=== PATIENT | male | born 1930 | race Caucasian/White ===

== ENCOUNTER 2017-05-11 11:58 | Inpatient (IN) | payer OTHER ==
[~2017-05-11] VITALS: Ht 172.7 cm; Wt 81.0 kg
--- NOTE | ~2017-05-11 | H ---
[facility] [place] [address] HISTORY AND PHYSICAL Name: SHAKIR VALERO Room #: 359-P [facility] IN M.R.#: [id number] Admission: 05/11/17 Attend Phys: Juan Diego Bello DO Discharge: 05/12/17 Date of : [birth year] Report #: [id number] THIS REPORT FOR: //name// CC: Jose Madera DATE OF SERVICE: 05/11/2017 REASON FOR PRESENTATION: Weakness of 1 day duration. HISTORY OF PRESENT ILLNESS: This is a very pleasant patient who is known to have hypertension; hyperlipidemia; GERD; Alzheimer disease; coronary artery disease, status post CABG. He was at his protestant this morning and went to the rest room. His checked on him and found him sitting in chair. He reported to her that he has had some issues with weakness and blurry vision while at protestant. No syncopal episodes. No chest pain or shortness of breath. No previous similar episodes. No numbness in any part of his body. No headache. No other focal neurological or cardiac symptoms. He presented to the Emergency Room where he was found to have bradycardia. Initial bradycardia evaluation was pretty much unremarkable, other than the fact that he is taking atenolol. Really, no other associated symptoms. He is known, as I have stated, to have coronary artery disease, status post CABG many years ago. No change in the medications. No syncopal episodes. PAST MEDICAL HISTORY: 1. Coronary artery disease, post CABG. 2. Hypertension. 3. Hyperlipidemia. 4. Alzheimer dementia. 5. Gout. PAST SURGICAL HISTORY, 1. CABG. 2. Tonsillectomy. MEDICATIONS: 1. Esomeprazole. 2. Memantine. 3. Losartan. 4. Atenolol. 5. Naproxen. 6. Lasix. 7. Cholecalciferol. ALLERGIES: No known drug allergies. 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 He lives with his . No drug or alcohol abuse. REVIEW OF SYSTEMS: GENERAL: No fever or chills, but significant weakness. CARDIOVASCULAR: No chest pain or palpitation. PULMONARY: No cough or hemoptysis. GASTROINTESTINAL: No nausea or vomiting. GENITOURINARY: Occasional frequency. MUSCULOSKELETAL: No morning stiffness, occasional arthralgias. NEUROLOGICAL: Significant for weakness. No numbness in any part of his body. No syncopal episodes. PHYSICAL EXAMINATION: GENERAL: The patient is pleasant, alert, oriented. VITAL SIGNS: Pulse rate initially was 30. Respiratory rate was 15. Blood pressure was 124/54. His pulse picked up to 61 after given atropine. HEAD AND NECK: No jugular venous distention, no bruit, no thyromegaly. CHEST: No crackles. CARDIOVASCULAR: Regular, bradycardic. ABDOMEN: Soft, nontender, with no hepatosplenomegaly. EXTREMITIES: Lower extremities, essentially no edema. LABORATORY VALUES: Reviewed. Mildly depressed platelets at 86,000. Creatinine is up to 1.6 from a baseline of 1.3. Initial troponin is negative. IMAGING: Including his chest x-ray reviewed. ASSESSMENT, IMPRESSION AND PLAN: 1. Symptomatic bradycardia. 2. Hypertension. 3. Acute kidney injury. 4. Thrombocytopenia. 5. History of coronary artery disease, status post coronary artery bypass graft. 6. Hyperlipidemia. 7. Alzheimer dementia. 8. Gout. 9. Admission. 10. Serial troponins. 11. Hold atenolol. 12. Check thyroid function test in the morning. 13. Hold Lasix. 14. Watch blood pressure. He received 1 liter bolus in the Emergency Room and no further fluid is needed for now. Monitor kidney function. 15. We will discuss with the Cardiology what beta titi he needs to be on, [place] [address] HISTORY AND PHYSICAL Name: SHAKIR VALERO Room #: 359-P [facility] IN ..#: [id number] Admission: 05/11/17 Attend Phys: Juan Diego Bello DO Discharge: 05/12/17 Date of : [birth year] Report #: [id number] after his bradycardia resolves. 16. Continue with the aspirin, statin, Cozaar for now. <ELECTRONICALLY SIGNED> By: Jose Ariza MD 05/14/17 1000 1347 1431 Jose Ariza MD /nt
--- NOTE | ~2017-05-11 | EKG ---
[address] [employer] [place] [address] ELECTROCARDIOGRAM REPORT Name: SHAKIR VALERO Room #: 359-P ADM IN M.R.#: [id number] Admission: 05/11/17 Attend Phys: Jose Ariza MD Discharge: Date of : [birth year] Report #: [id number] THIS REPORT FOR: //name// [facility] ED Test Date: 2017-05-11 Test Time: 12:00:05 Pat Name: SHAKIR VALERO Department: Room: 359 Gender: M Pediatrician: [id number] : 1930 Requested By: Jose Ariza Order Number: [id number] MD: Measurements Intervals [place] Rate: 90 P: 40 CA: 208 QRS: -30 QRSD: 94 T: 122 QT: 389 QTc: 476 Interpretive Statements Sinus rhythm Ventricular bigeminy Probable left atrial enlargement Inferior infarct, old Consider anterior infarct Lateral leads are also involved Compared to ECG 11/22/2015 20:18:19 Ventricular premature complex(es) now present Sinus bradycardia no longer present First degree AV block no longer present Poor R-wave progression no longer present T-wave abnormality no longer present Possible ischemia no longer present Myocardial infarct finding still present [email or web address] By: 1200 [facility] Epiphany EpiphanyMD /JUAN
--- NOTE | ~2017-05-11 | HC ---
[facility] [place] [address] CONSULTATION Name: SHAKIR VALERO Room #: 359-P [facility] IN M.R.#: [id number] Admission: 05/11/17 Attend Phys: Juan Diego Bello DO Discharge: 05/12/17 Date of : [birth year] Report #: [id number] THIS REPORT FOR: //name// CC: Jose Madera MD DATE OF SERVICE: 05/12/2017 TYPE OF REPORT: Cardiology consultation. PRIMARY CARE PHYSICIAN: Jeramy Madera M.D. HISTORY OF PRESENT ILLNESS: The patient is an 87-year-old white male who I was asked to see in the hospital today after he was noted to be bradycardic. The history is obtained from some old records. There are no family members available. The patient is demented and does not know where he is at and what year this is. He does not know why he is in the hospital. According to the records, the patient had coronary artery bypass surgery more than 15 years ago. He has been followed by my partner, Dr. Matt Trujillo. His last cardiac workup included an echocardiogram in November 2015 here at [facility] that showed an ejection fraction of 55%, apical hypokinesis and mild aortic insufficiency. He actually had a nuclear stress test in November 2015. 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 Medical therapy was recommended. The patient apparently was brought to the emergency room yesterday by ambulance. The patient apparently had been noted to be bradycardic. He had been weak and lightheaded with no energy. He does have severe dementia. [facility]. The patient has a nurse who gives me the patient's medications. There have been no recent changes in medication. Apparently, the patient had no recent chest pain, shortness of breath, nausea, vomiting or abdominal pain. PAST MEDICAL HISTORY: Otherwise significant for hypertension and severe dementia. MEDICATIONS: His medications yesterday consist of Flomax, Lasix, lisinopril, aspirin, simvastatin, Namenda, Exelon, Nexium, Naprosyn, atenolol 25 mg a day and losartan 25 mg a day. ALLERGIES: He had no known drug allergies. SOCIAL HISTORY: There is no history of smoking or alcohol abuse. REVIEW OF SYSTEMS: There is no history of stroke, asthma, peptic ulcer disease, liver disease, kidney disease or cancer. [address] [address] CONSULTATION Name: SHAKIR VALERO Room #: 359-P [facility] IN [facility]#: [id number] Admission: 05/11/17 Attend Phys: Juan Diego Bello DO Discharge: 05/12/17 Date of : [birth year] Report #: [id number] PHYSICAL EXAMINATION: GENERAL: Revealed an elderly male, lying in bed. He appeared in no distress. VITAL SIGNS: He had a blood pressure of 100/60, pulse was 60 and he was afebrile. HEENT: He was anicteric. Conjunctivae are pink. Mucous membranes are moist. NECK: Veins do not appear distended. CHEST: Clear to auscultation. CARDIAC: Regular rate and rhythm. ABDOMEN: Soft. EXTREMITIES: Had no edema. Dorsalis pedis pulse 3+ bilaterally. SKIN: Cool and dry. NEUROLOGICAL: He moved all extremities. PSYCHIATRIC: Mood appeared appropriate. RADIOLOGICAL DATA: First, there were some rhythm strips obtained by paramedics that appeared to show severe sinus bradycardia with a heart rate in the 30s with a first-degree AV block. His ECG on admission yesterday here at [facility] appeared to show sinus rhythm, first-degree AV block, PVCs in the pattern of bigemini and nonspecific ST-segment changes. Currently, the patient appears to be in a sinus rhythm, frequent PVCs. His workup in the Emergency Room yesterday, he had a portable chest x-ray that showed cardiomegaly. LABORATORY DATA: Sodium 138, creatinine 1.3 and glucose 97. Liver function studies were normal. Troponin was 0.29. His white blood cell count 9.1 and hemoglobin 14.5. IMPRESSION AND RECOMMENDATIONS: 1. Sinus bradycardia. At this time, we would stop his beta titi. We would check thyroid function studies. If bradycardia persists, we would consider pacemaker. 2. Severe dementia. 3. Coronary artery disease with previous bypass surgery. No recent angina. 4. Hypertension. The patient has been on an adrenergic receptor binder and beta titi. <ELECTRONICALLY SIGNED> By: Hu Osorio MD, FACC 05/12/17 1653 [id number] [id number] Hu Osorio MD, FACC /nt
--- NOTE | ~2017-05-11 | EKG ---
[address] [address] ELECTROCARDIOGRAM REPORT Name: SHAKIR VALERO Room #: 359- ADM IN M.R.#: [id number] Admission: 05/11/17 Attend Phys: Jose Ariza MD Discharge: Date of : [birth year] Report #: [id number] THIS REPORT FOR: //name// [facility] ED Test Date: 2017-05-11 Test Time: 12:00:05 Pat Name: SHAKIR VALERO Department: Room: 359 Gender: M [employer]: [id number] : 1930 Requested By: Jose Ariza Order Number: [id number] MD: Isaac Martinez Measurements Intervals [place] Rate: 90 P: 40 RI: 208 QRS: -30 QRSD: 94 T: 122 QT: 389 QTc: 476 Interpretive Statements Sinus rhythm Ventricular bigeminy Probable left atrial enlargement Inferior infarct, old Consider anterior infarct Lateral leads are also involved Electronically Signed On 05-12-2017 8:46:25 CDT by Isaac Martinez [email or web address] <ELECTRONICALLY SIGNED> By: Isaac Martinez MD 05/12/17 0846 1200 1200 Isaac Martinez MD /EPI
[~2017-05-11 11:58] MED LIST: ALEVE220 MG PO; ALLOPURINOL 30300 M2 PO; ASPIR 8181 MG PO; ASPIRIN325 PO; EXELON 9.5 MG9.5 MG; FLOMAX0.4 MG; FLOMAX0.4 MG PO; GARLIC1000 MG; LASIX 20 MG TAB20 MG PO; LISINOPRIL5 MG PO; NAMENDA 10 MG T10 MG PO; NEXIUM40 MG; NITROGLYCERIN0.4 MG SUBLING; SIMVASTATIN40 MG PO; TENORMIN25 MG; UNICOMPLEX M TA1 TA1 PO; UNISOM25 MG; UNISOM25 MG PO; VITAMIN C1000 M1; VITAMIN D1000 UNI1 PO; VITAMIN D31000 UNI2 PO; VITAMINC500 PO
[2017-05-11 11:59] VITALS: BP 95/61
[2017-05-11] MEDS ORDERED: ATENOLOL 25 MG25 M1 PO (12:15)
[2017-05-11] MEDS ORDERED: COZAAR 25 MG TA25 M1 PO (12:18)
[2017-05-11 12:31] LABS: ABSOLUTE NEUTROPHILS 5.9 thou/uL (1.4-8.2); BASOPHILS 0.2 % (0.0-2.0); EOSINOPHILS 2.5 % (0.0-3.0); HEMOGLOBIN 13.7 gm/dL (14.0-18.0); LYMPHOCYTES 14.3 % (24.0-44.0); MCH 38.1 pg (26.0-34.0); MONOCYTES 7.4 % (1.0-8.0); POLYS 75.6 % (36.0-66.0); RBC 3.58 mil/uL (4.50-6.00); RDW 14.2 % (10.5-14.5); WBC 7.8 thou/uL (4.0-11.0)
[2017-05-11 12:33] LABS: MANUAL DIFF NO
[2017-05-11 12:36] LABS: ANION GAP 6 mmol/L (7-16); BUN 30 mg/dL (7-18); CALCIUM 9.1 mg/dL (8.5-10.1); CHLORIDE 105 mmol/L (98-107); CO2 27 mmol/L (21-32); CREATININE 1.6 mg/dL (0.7-1.3); GLUCOSE 102 mg/dL (74-106); POTASSIUM 4.4 mmol/L (3.5-5.1); SODIUM 138 mmol/L (136-145)
[2017-05-11 12:43] LABS: MAGNESIUM 2.3 mg/dL (1.8-2.4); TROPONIN-I < 0.04 ng/mL (<0.04-0.07)
[2017-05-11 13:03] LABS: PLATELET COUNT 86 thou/uL (150-400); PLATELET ESTIMATE DECREASED
[2017-05-11 13:15] VITALS: BP 112/52
[2017-05-11 13:54] VITALS: BP 124/54
[2017-05-11 14:48] VITALS: BP 143/90
[2017-05-11 19:45] VITALS: BP 142/72
[2017-05-12 04:08] VITALS: BP 143/70
[2017-05-12 05:19] LABS: HEMATOCRIT 42.8 % (42.0-52.0); HEMOGLOBIN 14.5 gm/dL (14.0-18.0); MCH 36.8 pg (26.0-34.0); MCHC 33.7 g/dL (28.0-37.0); MCV 109.1 fL (80.0-100.0); RBC 3.93 mil/uL (4.50-6.00); RDW 13.9 % (10.5-14.5); WBC 9.1 thou/uL (4.0-11.0)
[2017-05-12 05:35] LABS: ALBUMIN 3.6 g/dL (3.4-5.0); CALCIUM 8.7 mg/dL (8.5-10.1); CREATININE 1.3 mg/dL (0.7-1.3); TOTAL BILIRUBIN 0.9 mg/dL (<0.1-1.0); TOTAL PROTEIN 6.8 g/dL (6.4-8.2); TROPONIN-I 0.29 ng/mL (<0.04-0.07)
[2017-05-12 07:47] VITALS: BP 153/86
[2017-05-12] MEDS ORDERED: LISINOPRIL10 MG PO (15:00)
[2017-05-12 15:11] VITALS: BP 153/86
== END 2017-05-12 15:38 | disposition home or self-care (01) | DRG 308 ==
LOC: ER 11:58 → EROBS 13:18 → 3W 13:18 → ENTRNSPT 05-12 15:37 → 3W 05-12 15:38
PROVIDERS: Emergency Medicine; Hospitalist
DX: R00.1 Bradycardia, unspecified (principal); N17.1 Acute kidney failure with acute cortical necrosis; M10.9 Gout, unspecified; I10 Essential (primary) hypertension; E78.5 Hyperlipidemia, unspecified; T50.995A Adverse effect of other drugs, medicaments and biological substances, initial encounter; I25.10 Atherosclerotic heart disease of native coronary artery without angina pectoris; G30.9 Alzheimer's disease, unspecified; F02.80 Dementia in other diseases classified elsewhere, unspecified severity, without behavioral disturbance, psychotic disturbance, mood disturbance, and anxiety; I95.9 Hypotension, unspecified; K21.9 Gastro-esophageal reflux disease without esophagitis; I25.2 Old myocardial infarction; Z95.1 Presence of aortocoronary bypass graft; Z82.49 Family history of ischemic heart disease and other diseases of the circulatory system; Z79.899 Other long term (current) drug therapy; Y92.89 Other specified places as the place of occurrence of the external cause; Z90.49 Acquired absence of other specified parts of digestive tract
CPT/HCPCS: 10779